=== PATIENT | female | born 1990 | race African-American/Black ===

== ENCOUNTER 2017-08-03 17:06 | Inpatient (IN) ==
[2017-08-03] MEDS ORDERED: hydrALAZINE 20 MG/1 ML VIAL IV ONE ×2 (17:53→19:15)
[2017-08-03] MEDS: LACTATED RINGERS 1,000 ML IV SCH (17:54)
[2017-08-03] MEDS ORDERED: hydrALAZINE 20 MG/1 ML VIAL ONE (18:22)
[2017-08-03 19:07] LABS: Basophils % 0.3 % (0.0-0.8); Eosinophils # 0.1 10*3/uL (0.0-0.87); Eosinophils % 0.8 % (0.00-10.9); Hematocrit 35.6 VOL% (35.7-47.0); Hemoglobin 11.3 GM/DL (12.0-16.0); Immature Granulocytes % 0.6 %; Immature Granulocytes Absolute 0.06 #; Lymphocytes # 1.8 10*3/uL (1.4-4.0); Lymphocytes % 18.8 % (21.3-54.2); Mean Corpuscular HGB Conc 31.7 GM/DL (32-36); Mean Corpuscular Hemoglobin 25 PG (27-34); Mean Corpuscular Volume 78.8 FL (87-102); Mean Platelet Volume 11.2 FL (9.6-12.0); Monocytes # 0.8 10*3/uL (0.11-0.8); Monocytes % 8.8 % (1.7-12.7); NRBC # 0.03 10*3/uL; Neutrophils # 6.8 10*3/uL (1.4-7.4); Neutrophils % 70.7 % (38.7-73.9); Platelet Count 322 T/CUMM (130-400); Red Blood Count 4.52 MC/CUMM (3.8-5.5); Red Cell Distribution Width 16.9 % (9.3-17.3); White Blood Count 9.6 T/CUMM (4-12)
[2017-08-03 19:18] LABS: INR 0.9; PT Patient Result 9.2 SECS; Partial Thromboplastin Time 31.4 SECS (0-40)
[2017-08-03 19:32] LABS: Alanine Aminotransferase 14 U/L (13-56); Alkaline Phosphatase 126 U/L (45-117); Aspartate Amino Transferase 16 U/L (0-37); Bilirubin,Direct < 0.100 MG/DL (0.0-0.20); Bilirubin,Total < 0.39 MG/DL (0.2-1.0); Blood Urea Nitrogen 7 MG/DL (7-18); Calcium 8.3 MG/DL (8.5-10.1); Glucose 61 MG/DL (74-106); Osmolality,Calculated 272.5 MOS/KG (273-304); Potassium 4.2 MMOL/L (3.5-5.1); Sodium 139 MMOL/L (136-145); Total Protein 6.3 G/DL (6.4-8.3); Uric Acid 5.4 MG/DL (2.6-6.0)
[2017-08-03] MEDS: ACETAMINOPHEN 500 MG TABLET PO PRN (20:00)
[2017-08-03 20:14] LABS: Barbiturates Screen,Urine Negative (Negative); Benzodiazepines Screen,Urine Negative (Negative); Cannabinoid Screen,Urine Negative (Negative); Opiate Screen,Urine Negative (Negative); Phencyclidine Screen,Urine Negative (Negative)
[2017-08-03 20:15] LABS: Amorphous Crystals,Urine Occasional /HPF (Few); Apearance,Urine Slightly Hazy (Clear); Bacteria,Urine Occasional /HPF (Few); Bilirubin,Urine Negative (Negative); Blood, Urine Negative (Negative); Glucose,Urine (UA) Negative (Negative); Hyaline Casts,Urine 7 /LPF (0-3); Ketones,Urine Negative (Negative); Mucus,Urine Few /LPF (Occasional); Nitrite,Urine Negative (Negative); Protein,Urine >=500 MG/DL; RBC,Urine 1 /HPF (0-4); Squamous Epithelial Cell,Urine Occasional /HPF (0-10); Urine Color Amber (Yellow); Urine Specific Gravity 1.025 (1.001-1.035); WBC,Urine 4 /HPF (0-6)
[2017-08-03] MEDS ORDERED: ONDANSETRON 4 MG/2 ML VIAL IV PRN (23:16)
[2017-08-03] MEDS ORDERED: MEPERIDINE 50 MG/1 ML VIAL IV PRN (23:16)
[2017-08-03] MEDS: cefOXitin 2,000 MG in SYRINGE 1 EACH IV SCH (23:46)
[2017-08-04] MEDS: LACTATED RINGERS 1,000 ML IV SCH ×2 (01:07→11:18)
[2017-08-04] MEDS: ACETAMINOPHEN 500 MG TABLET PO PRN (03:22)
[2017-08-04] MEDS: cefOXitin 2,000 MG in SYRINGE 1 EACH IV SCH ×2 (05:27→11:25)
[2017-08-04] MEDS ORDERED: FAMOTIDINE 20 MG/2 ML VIAL IV PRN (06:13)
[2017-08-04] MEDS ORDERED: CITRIC ACID/SODIUM CITRATE 30 ML UDCUP PO PRN (06:13)
[2017-08-04 07:13] LABS: Basophils % 0.2 % (0.0-0.8); Eosinophils # 0.1 10*3/uL (0.0-0.87); Eosinophils % 0.8 % (0.00-10.9); Hematocrit 35.5 VOL% (35.7-47.0); Hemoglobin 11.4 GM/DL (12.0-16.0); Immature Granulocytes % 0.8 %; Immature Granulocytes Absolute 0.08 #; Lymphocytes # 1.5 10*3/uL (1.4-4.0); Lymphocytes % 14.2 % (21.3-54.2); Mean Corpuscular HGB Conc 32.1 GM/DL (32-36); Mean Corpuscular Hemoglobin 25 PG (27-34); Mean Corpuscular Volume 77.9 FL (87-102); Mean Platelet Volume 10.7 FL (9.6-12.0); Monocytes # 0.8 10*3/uL (0.11-0.8); Monocytes % 7.6 % (1.7-12.7); NRBC # 0.02 10*3/uL; Neutrophils # 7.9 10*3/uL (1.4-7.4); Neutrophils % 76.4 % (38.7-73.9); Platelet Count 321 T/CUMM (130-400); Red Blood Count 4.56 MC/CUMM (3.8-5.5); Red Cell Distribution Width 16.8 % (9.3-17.3); White Blood Count 10.4 T/CUMM (4-12)
[2017-08-04] MEDS ORDERED: OXYTOCIN/LR 30 UNIT/1,000 ML BAG IV ONE (07:30)
[2017-08-04] MEDS ORDERED: ONDANSETRON 4 MG/2 ML VIAL ONE ×2 (08:05→09:00)
[2017-08-04] MEDS ORDERED: SUCCINYLCHOLINE 200 MG/10 ML VIAL ONE ×3 (08:05→09:45)
[2017-08-04] MEDS ORDERED: LABETALOL 100 MG/20 ML VIAL IV ONE ×2 (08:05→09:00)
[2017-08-04] MEDS ORDERED: OXYTOCIN 10 UNIT/ML VIAL ONE ×3 (08:14→09:44)
[2017-08-04] MEDS ORDERED: PROPOFOL 200 MG/20 ML VIAL IV ONE ×2 (09:00→09:44)
[2017-08-04] MEDS ORDERED: SEVOFLURANE 1 UNIT/15 MINUTE INH ONE ×2 (09:00→10:05)
[2017-08-04] MEDS ORDERED: fentaNYL 100 MCG/2 ML VIAL ONE (09:43)
[2017-08-04] MEDS ORDERED: MORPHINE 10 MG/10 ML VIAL ONE (09:44)
[2017-08-04] MEDS ORDERED: LABETALOL 20 MG/4 ML SYRINGE IV ONE (09:45)
[2017-08-04] MEDS ORDERED: NALOXONE 0.4 MG/ML VIAL IV PRN (09:50)
[2017-08-04] MEDS ORDERED: KETOROLAC 30 MG/1 ML VIAL IM PRN (09:52)
[2017-08-04] MEDS ORDERED: hydrOXYzine HCL 25 MG/1 ML VIAL IM PRN (09:53)
[2017-08-04] MEDS ORDERED: diphenhydrAMINE 50 MG/1 ML VIAL IV ONE (09:53)
[2017-08-04] MEDS ORDERED: MORPHINE PCA 30 MG/30 ML SYRINGE IV SCH ×2 (10:00→22:25)
[2017-08-04 10:11] LABS: Cord Arterial Blood HCO3 20.1 MMOL/L
[2017-08-04 10:15] LABS: Cord Venous Blood HCO3 21.5 MMOL/L; Cord Venous Blood PCO2 50.6 MMHG; Cord Venous Blood PO2 29.4
[2017-08-04] MEDS ORDERED: hydrALAZINE 20 MG/1 ML VIAL IV ONE ×2 (10:42→10:47)
[2017-08-04] MEDS ORDERED: MAGNESIUM SULF RIDER 4 GM in PREMIX 1 EACH IV ONE (10:45)
[2017-08-04] MEDS ORDERED: MAGNESIUM SULF RIDER 100 ML IV ONE (10:55)
[2017-08-04] MEDS ORDERED: SODIUM CHLORIDE 0.9% 100 ML IV ONE (11:24)
[2017-08-04] MEDS ORDERED: OXYTOCIN/LR 20 UNIT/1,000 ML BAG IV ONE ×2 (11:32→13:06)
[2017-08-04] MEDS: MAGNESIUM SULF DRIP 40 GM/1,000 ML ML IV SCH (11:37)
[2017-08-04] MEDS ORDERED: ceFAZolin 1,000 MG in SYRINGE 1 EACH IV SCH (13:06)
[2017-08-04] MEDS ORDERED: LACTATED RINGERS 1,000 ML IV SCH (13:06)
[2017-08-04] MEDS ORDERED: RHO(D) IMMUNE GLOBULIN 300 MCG SYRINGE IM ONE (13:06)
[2017-08-04] MEDS ORDERED: ONDANSETRON 4 MG/2 ML VIAL IV PRN (13:06)
[2017-08-04] MEDS ORDERED: diphenhydrAMINE 50 MG/1 ML VIAL IV PRN (15:26)
[2017-08-04] MEDS: ACETAMINOPHEN 325 MG TABLET PO PRN ×2 (16:46→23:43)
[2017-08-04] MEDS: DOCUSATE SODIUM 100 MG CAPSULE PO SCH (20:35)
[2017-08-05 00:45] LABS: Apearance,Urine Slightly Hazy (Clear); Bilirubin,Urine Negative (Negative); Blood, Urine Negative (Negative); Glucose,Urine (UA) Negative (Negative); Granular Casts,Urine 2 /LPF (0-1); Hyaline Casts,Urine 10 /LPF (0-3); Ketones,Urine 5 mg/dL (Negative); Mucus,Urine Occasional /LPF (Occasional); Nitrite,Urine Negative (Negative); Protein,Urine >=500 MG/DL; RBC,Urine 2 /HPF (0-4); Squamous Epithelial Cell,Urine Occasional /HPF (0-10); Urine Color Amber (Yellow); Urine Specific Gravity 1.031 (1.001-1.035); Urine Urobilinogen < 2.0 EU/DL (0.2-1.0); WBC,Urine 4 /HPF (0-6)
[2017-08-05] MEDS: MAGNESIUM SULF DRIP 40 GM/1,000 ML ML IV SCH (08:45)
[2017-08-05] MEDS: SIMETHICONE CHEW 80 MG TABLET PO PRN (11:19)
[2017-08-05] MEDS: MULTIVITAMIN (PRENATAL) TABLET PO SCH (11:19)
[2017-08-05] MEDS: DOCUSATE SODIUM 100 MG CAPSULE PO SCH ×2 (11:20→20:56)
[2017-08-05] MEDS: IBUPROFEN 800 MG TABLET PO PRN (11:20)
[2017-08-05] MEDS: cefOXitin 2,000 MG in SYRINGE 1 EACH IV SCH ×2 (12:33→17:55)
[2017-08-05 18:35] LABS: Basophils % 0.2 % (0.0-0.8); Eosinophils # 0.1 10*3/uL (0.0-0.87); Eosinophils % 1.1 % (0.00-10.9); Hematocrit 32.5 VOL% (35.7-47.0); Hemoglobin 10.1 GM/DL (12.0-16.0); Immature Granulocytes % 0.7 %; Immature Granulocytes Absolute 0.08 #; Lymphocytes # 1.3 10*3/uL (1.4-4.0); Lymphocytes % 11.4 % (21.3-54.2); Mean Corpuscular HGB Conc 31.1 GM/DL (32-36); Mean Corpuscular Hemoglobin 25 PG (27-34); Mean Corpuscular Volume 79.7 FL (87-102); Mean Platelet Volume 10.8 FL (9.6-12.0); Monocytes # 0.4 10*3/uL (0.11-0.8); Neutrophils # 9.8 10*3/uL (1.4-7.4); Neutrophils % 83.6 % (38.7-73.9); Platelet Count 326 T/CUMM (130-400); Red Blood Count 4.08 MC/CUMM (3.8-5.5); Red Cell Distribution Width 17.1 % (9.3-17.3); White Blood Count 11.7 T/CUMM (4-12)
[2017-08-06] MEDS: cefOXitin 2,000 MG in SYRINGE 1 EACH IV SCH ×3 (00:27→12:00)
[2017-08-06] MEDS: DOCUSATE SODIUM 100 MG CAPSULE PO SCH ×2 (09:46→21:03)
[2017-08-06] MEDS: MAGNESIUM HYDROXIDE SUSP 30 ML UDCUP PO PRN (09:46)
[2017-08-06] MEDS: MULTIVITAMIN (PRENATAL) TABLET PO SCH (09:46)
[2017-08-06] MEDS: SIMETHICONE CHEW 80 MG TABLET PO PRN (09:46)
[2017-08-06] MEDS: SULFAMETHOX/TRIMETHOPRIM 800-160 MG TABLET PO SCH (21:03)
[2017-08-07] MEDS: IBUPROFEN 800 MG TABLET PO PRN (00:53)
[2017-08-07 07:34] VITALS: BP 148/86
[2017-08-07] MEDS ORDERED: DIPH/TET/ACEL PERT BOOSTER VACCINE 0.5 ML VIAL IM ONE (07:56)
[2017-08-07] MEDS: DOCUSATE SODIUM 100 MG CAPSULE PO SCH (08:35)
[2017-08-07] MEDS: MAGNESIUM HYDROXIDE SUSP 30 ML UDCUP PO PRN (08:35)
[2017-08-07] MEDS: SULFAMETHOX/TRIMETHOPRIM 800-160 MG TABLET PO SCH (08:35)
[2017-08-07] MEDS: MULTIVITAMIN (PRENATAL) TABLET PO SCH (08:36)
[2017-08-07] MEDS: SIMETHICONE CHEW 80 MG TABLET PO PRN (08:36)
== END 2017-08-07 14:00 | disposition home or self-care (01) | DRG 540 ==
LOC: N.LDOUT 17:06 → N.LD 17:09 → N.OB 08-05 10:48
PROVIDERS: ADMIT Obstetrics & Gynecology; ATTEND Obstetrics & Gynecology
PROC: LDCSECT (ICD-10-PCS; 2017-08-04 08:05)